=== PATIENT | female | born 1955 | race Caucasian/White ===

== ENCOUNTER 2021-02-19 09:09 | Day surgery (SDC) | payer BC ==
[2021-02-18 11:31] VITALS: BMI 28.1
[~2021-02-19 09:09] MED LIST: Fentanyl 100 MCG/2 ML VIAL ONE; Fluorouracil 100 MG, Enoxaparin Sodium 25 MG, EPINEPHrine 0.3 MG in Ophthalmic Irrigati... IRR SCH; Midazolam HCl 2 mg/2 ml Vial ONE
[2021-02-19] MEDS ORDERED: Phenylephrine 2.5% Ophth Soln 5 ML BOT ONE (09:45)
[2021-02-19] MEDS ORDERED: Cyclopentolate 1% Opth Drop 2 ML BOT ONE (09:45)
[2021-02-19] MEDS ORDERED: CEFAZOLIN 1 GM VIAL ONE (10:38)
[2021-02-19] MEDS ORDERED: Lidocaine 1% PF 5 ML VIAL ONE (10:38)
[2021-02-19] MEDS ORDERED: Enoxaparin Sodium 30 MG/0.3 ML SYRINGE ONE (10:38)
[2021-02-19] MEDS ORDERED: Triamcinolone 40 MG/ML VIAL ONE (10:38)
[2021-02-19] MEDS ORDERED: Bupivacaine PF 0.75% SDV 10 ML ONE (10:38)
[2021-02-19] MEDS ORDERED: PROPOFOL 200 MG/20 ML VIAL ONE (10:38)
[2021-02-19] MEDS ORDERED: Maxitrol 0.1% Opth Oint 3.5 GM TUBE ONE (10:38)
[2021-02-19] MEDS ORDERED: Lidocaine 4% PF 5 ML AMP ONE (10:38)
== END 2021-02-19 12:55 | disposition home or self-care (01) ==
LOC: SDC 09:09
PROVIDERS: ATTEND Ophthalmology Retina Specialist
PROC: 08T43ZZ Resection of Right Vitreous, Percutaneous Approach (ICD-10-PCS; principal; 2021-02-19)
DX: H33.011 Retinal detachment with single break, right eye (principal); Z79.82 Long term (current) use of aspirin; Z79.84 Long term (current) use of oral hypoglycemic drugs; Z79.899 Other long term (current) drug therapy; Z88.2 Allergy status to sulfonamides; Z88.5 Allergy status to narcotic agent; Z98.41 Cataract extraction status, right eye; Z98.42 Cataract extraction status, left eye; Z96.1 Presence of intraocular lens
CPT/HCPCS: 67025; J0171; J0690; J1650; J2250; J2704; J3010; J3301; J3490; J9190

== ENCOUNTER 2021-08-28 15:17 | Emergency (ER) | payer BC ==
[2021-08-28] MEDS ORDERED: Insulin Regular 300 UNITS/3 ML VIAL ONE (16:44)
[2021-08-28 16:59] LABS: Anion Gap 17 mmol/L (10-20); BUN (Urea Nitrogen) 25 mg/dL (9.8-20.1); Calc. Creatinine Clearance 0 mL/min (70-130); Calcium 9.6 mg/dL (7.8-10.44); Carbon Dioxide 28 mmol/L (23-31); Chloride 94 mmol/L (98-107); Glucose 329 mg/dL (80-115); Potassium 3.6 mmol/L (3.5-5.1); Sodium 135 mmol/L (136-145)
== END 2021-08-28 17:40 | disposition home or self-care (01) ==
LOC: ERS 15:17
DX: E11.65 Type 2 diabetes mellitus with hyperglycemia (principal); I10 Essential (primary) hypertension; E03.9 Hypothyroidism, unspecified; Z79.82 Long term (current) use of aspirin; Z79.899 Other long term (current) drug therapy
CPT/HCPCS: 36416; 80048; 82010; 96361; 96374; J1815